=== PATIENT | male | born 1950 | race Caucasian/White ===

== ENCOUNTER 2021-07-16 11:27 | Emergency (ER) | payer MEDICARE, BC ==
[~2021-07-16] VITALS: Ht 175.3 cm; Wt 74.8 kg
[2021-07-16 11:30] VITALS: BP 173/100
--- NOTE | 2021-07-16 11:33 | NUR ---
PT PLACED OUTSIDE OF ER LOBBY TO WAIT FOR MSE.
[2021-07-16] MEDS ORDERED: LIDOCAINE 2% 1000 MG/50 ML VIAL INJ ONE (12:40)
[2021-07-16] MEDS ORDERED: ELIMC TP (14:46)
[2021-07-16] MEDS ORDERED: CEPH-588 PO (14:46)
[2021-07-16 14:50] VITALS: BP 160/95
--- NOTE | 2021-07-16 14:50 | NUR ---
Patient discharged with v/s stable. Written and verbal after care instructions given and explained. Patient alert, oriented and verbalized understanding of instructions. Ambulatory with steady gait. All questions addressed prior to discharge. ID band removed. Patient advised to follow up with PMD. Rx of Elimite 5% and Keflex given. Patient educated on indication of medication including possible reaction and side effects. Opportunity to ask questions provided and answered.
== END 2021-07-16 14:20 | disposition home or self-care (01) ==
LOC: MED 11:27
DX: L03.012 Cellulitis of left finger (principal); B86 Scabies
CPT/HCPCS: 10060; 99283; J2001